=== PATIENT | female | born 1995 | race Caucasian/White ===

== ENCOUNTER 2016-11-05 14:55 | Emergency (ER) | payer OTHER ==
[~2016-11-05] VITALS: Ht 154.9 cm; Wt 42.0 kg
[2016-11-05 14:58] VITALS: Ht 154.9 cm; Wt 42.0 kg
[2016-11-05] MEDS ORDERED: AZITHROMYCIN 250 MG TAB PO STA (18:01)
[2016-11-05] MEDS ORDERED: CEFTRIAXONE SOD 350MG/ML 1 GM VIAL IM STA (18:01)
[2016-11-05 19:27] VITALS: BP 118/66; PULSE 95; TEMP 36.7; O2SAT 100
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
== END 2016-11-05 19:28 | disposition home or self-care (01) ==
LOC: C.EDB 14:56
DX: T76.21XA Adult sexual abuse, suspected, initial encounter (principal); X58.XXXA Exposure to other specified factors, initial encounter; Y92.89 Other specified places as the place of occurrence of the external cause

== ENCOUNTER → 2017-07-17 | Outpatient (CLI) | payer OTHER | END | disposition home or self-care (01) | LOC: C.LABSPEC 17:26 | PROVIDERS: ATTEND Family Medicine | DX: N94.9 Unspecified condition associated with female genital organs and menstrual cycle (principal) ==